=== PATIENT | female | born 1990 | race Caucasian/White ===

== ENCOUNTER 2016-08-25 10:05 | Inpatient (IN) ==
[~2016-08-25 10:05] MED LIST: Famotidine 20 MG/2 ML VIAL IVP PRN; Naloxone 0.4 MG/ML INJ IVP PRN; Ondansetron 4 MG/2 ML VIAL IVP PRN
[2016-08-25] MEDS ORDERED: *HR* Nalbuphine 20 MG/ML AMPUL IVP PRN (10:09)
--- NOTE | 2016-08-25 10:40 | OB/GYN History & Physical ---
Date of Encounter: 08/25/16 Time of Encounter: 10:29 Assessment and Plan (1) 17 weeks gestation of Current visit: Yes Status: Acute Admit for expectant management of nonviable 17w fetus Patient may have nubain as needed for pain CBC sent to lab Saline lock inserted Intermittent monitoring of heart tones (current 140); IOL with PV cytotec when heart tones have stopped Vaginal delivery anticipated Patient declines autopsy at this time She has yet to decide what she would like done with remains. POC per consult with Dr Roman (2) SROM (spontaneous rupture of membranes) Current visit: Yes Status: Acute Admit for expectant management of nonviable 17 week fetus History of Present Illness Chief complaint: PPROM at 17w5d HPI: Ms. Sofia is a 25 year old female that arrives from the office with c/o SROM at 17w5d and heart tones of 57 per ultrasound in office. Fetus is footling breech. She has a positive family history of jessica's disease. FOB has a positive family history of TOF. She is Rubella immune, varicella immune, RPR negative, HIV negative, Hep B negative, and her blood type is A positive. She denies pain, cramping, and vaginal bleeding. Ultrasound report from today: Scan: Transabdominal. Indication: viability. Findings: TA exam---mayberry--- breech fetus--+FHR at 57 bpm---no amniotic fluid seen surrounding baby---- appears to be a foot and leg in the cervix and vagina----dario in room for scan---[facility]. Past Med Surg Social Fam HX - Past Medical History Medical history: no medical history Psychiatric history: anxiety, depression - Past Surgical History Surgical History: non-contributory - Social History Smoking Status: Never smoker Smokeless Tobacco Status: Yes (ecig) Alcohol use: none Drug use: none Obstetrical History - Pregnancies : 1 Para: 0 Term: 0 : 0 Ab's: 0 Livin Medications and Allergies Benzonatate [Tessalon] 200 mg PO Q8H #20 capsule 01/03/16 [Rx] Loratadine/Pseudophed (12 HR) [Claritin D (12HR)] 1 each PO BID #14 tab.er.12h 01/03/16 [Rx] Ondansetron ODT [Zofran ODT] 4 mg SL Q6HR #15 tab.rapdis 05/21/16 [Rx] Vit/Iron Fumarate/FA [ Tablet] 1 each PO QDPC #90 tablet [Rx] Sulfamethoxazole/Trimeth DS [Bactrim DS] 1 each PO BID #14 tablet 06/05/16 [Rx] Allergies No Known Allergies Allergy (Verified 05/27/16 19:21) Exam - Constitutional Constitutional: well developed, well nourished, no acute distress, average body habitus - HEENT HEENT: Normocephaly, Mucus Membranes Moist - Lungs Respiratory exam: CTAB - Cardiovascular Cardiovascular exam: RRR, +S1, +S2 - Abdomen Abdomen: Present: bowel sounds normal, gravid, non tender - Extremities Extremities exam: normal capillary refill, normal inspection, warm, radial pulses palpable and symetrical - Uterus Uterus exam: Present: normal size (Appropriate for gestational age. Per doppler heart tones are 140; uterus palpates soft) Results All other labs normal. - VTE Reasons for not Prescribing Prophylaxis: Treatment not Indicated - Low risk for VTE
[2016-08-25 10:51] LABS: Basophils % 0.1 %; Eosinophils # 0.1 K/mcL (0.0-0.6); Eosinophils % 0.5 %; Hematocrit 36.6 % (35.3-44.9); Hemoglobin 12.5 g/dL (11.5-15.4); Immature Granulocytes % 0.5 % (0-4); Lymphocytes # 2.2 K/mcL (0.6-4.6); Lymphocytes % 15.2 %; Mean Corpuscular HGB Conc 34.2 g/dL (31.6-35.5); Mean Corpuscular Volume 84.9 fL (83.0-100.0); Mean Platelet Volume 11.8 fL (9.4-12.4); Monocytes # 0.9 K/mcL (0.0-1.3); Monocytes % 6.2 %; Neutrophils # 11.3 K/mcL (1.6-8.9); Platelet Count 206 K/mcL (140-400); Red Blood Count 4.31 M/mcL (3.82-4.97); Segmented Neutrophils % 77.5 %
== END 2016-08-25 16:40 | disposition critical access hospital (66) | DRG 566 ==
LOC: 1NENULAB
PROVIDERS: ADMIT Student in an Organized Health Care Education/Training Program; ATTEND Student in an Organized Health Care Education/Training Program

== ENCOUNTER 2019-02-16 19:02 | Inpatient (IN) ==
[2019-02-16] MEDS ORDERED: Isovue-370 500 ML BOTTLE IVP ONE (19:33)
[2019-02-16 19:45] LABS: Basophils % 0.3 %; Eosinophils # 0.1 K/mcL (0.0-0.6); Eosinophils % 0.4 %; Hematocrit 40.8 % (35.3-44.9); Hemoglobin 13.3 g/dL (11.5-15.4); Immature Granulocytes % 0.3 % (0-4); Lymphocytes # 2.7 K/mcL (0.6-4.6); Lymphocytes % 22.8 %; Mean Corpuscular HGB Conc 32.6 g/dL (31.6-35.5); Mean Corpuscular Hemoglobin 27.3 pg (28.0-33.3); Mean Corpuscular Volume 83.6 fL (83.0-100.0); Mean Platelet Volume 11.5 fL (9.4-12.4); Monocytes # 1.1 K/mcL (0.0-1.3); Platelet Count 303 K/mcL (140-400); Red Blood Count 4.88 M/mcL (3.82-4.97); Red Cell Distribution Width 13.7 % (11.5-14.5); Segmented Neutrophils % 67.2 %; White Blood Count 11.9 K/mcL (4.3-11.1)
[2019-02-16 20:07] LABS: Alanine Aminotransferase 14 Units/L (7-52); Albumin 4.4 g/dL (3.5-5.7); Albumin/Globulin Ratio 1.3 (1.1-2.2); Alkaline Phosphatase 85 Units/L (34-104); Amylase 54 Units/L (29-103); Aspartate Amino Transferase 13 Units/L (13-39); BUN/Creatinine Ratio 13 (6-26); Bilirubin,Indirect 0.2 mg/dL (0.0-1.0); Bilirubin,Total 0.2 mg/dL (0.3-1.0); Blood Urea Nitrogen 9 mg/dL (6-20); Calcium 9.4 mg/dL (8.6-10.3); Carbon Dioxide 22 mEq/L (23-29); Chloride 104 mEq/L (98-107); Globulin 3.3 g/dL (2.4-3.5); Glucose 93 mg/dL (70-105); Lipase 58 Units/L (11-82); Osmolality,Calculated 280 (280-300); Potassium 3.5 mEq/L (3.5-5.1); Sodium 136 mEq/L (136-145); Total Protein 7.7 g/dL (6.4-8.9); eGFR For African Americans > 60 (> 60); eGFR For Non-African Americans > 60 (> 60)
[2019-02-16 20:17] LABS: Bilirubin,Urine Negative (Negative); Blood,Urine Negative (Negative); Clarity,Urine Clear (Clear); Color,Urine Yellow (Yellow); Glucose,Urine (UA) Normal (Normal); Ketones,Urine Negative (Negative); Leukocyte Esterase,Urine Trace (Negative); Nitrite,Urine Negative (Negative); Protein,Urine Negative (Neg-Trace); Specific Gravity,Urine 1.019 (1.010-1.025); Urobilinogen,Urine Normal (Normal)
[2019-02-16 20:20] LABS: Bacteria,Urine None Seen per hpf (None-Few); Hyaline Casts,Urine None Seen per lpf (None-Few); RBC,Urine 0-3 per hpf (0-3); Squamous Epithelial Cell,Urine Many per lpf (None-Few)
[2019-02-16] MEDS ORDERED: Morphine Sulfate 2 MG/ML SYRINGE IVP ONE (23:15)
[2019-02-17] MEDS ORDERED: *HR* Meperidine 25 MG/ML SYRINGE IVP PRN (02:00)
[2019-02-17] MEDS ORDERED: Ondansetron 4 MG/2 ML VIAL IVP ONE (02:00)
[2019-02-17] MEDS ORDERED: *HR* Promethazine 25 MG/ML VIAL IVP PRN (02:00)
[2019-02-17] MEDS ORDERED: *HR* FentaNYL (PF) 100 MCG/2 ML VIAL ONE (02:04)
[2019-02-17] MEDS ORDERED: *HR* Propofol 200 MG/20 ML VIAL IVP ONE (02:04)
[2019-02-17] MEDS ORDERED: Lidocaine -MPF 4% 5 ML AMPUL ONE (02:04)
[2019-02-17] MEDS ORDERED: Lidocaine -MPF 2% 2 ML VIAL ONE (02:04)
[2019-02-17] MEDS ORDERED: *HR* Rocuronium Bromide 50 MG/5 ML VIAL ONE (02:04)
[2019-02-17] MEDS ORDERED: Ondansetron 4 MG/2 ML VIAL ONE (02:05)
[2019-02-17] MEDS ORDERED: Dexamethasone 4 MG/ML VIAL ONE (02:05)
[2019-02-17] MEDS ORDERED: Bupivacaine-MPF 0.25% 10 ML VIAL ONE (02:24)
[2019-02-17] MEDS ORDERED: Acetaminophen IV 1,000 MG/100 ML INFUS..BTL ONE (02:36)
[2019-02-17] MEDS ORDERED: *HR* Midazolam HCl 2 MG/2 ML VIAL ONE (02:37)
[2019-02-17] MEDS ORDERED: Lacri-Lube 3.5 GM TUBE ONE (03:14)
[2019-02-17] MEDS ORDERED: Neostigmine Methylsulfate 3 MG/3 ML SYRINGE ONE (05:05)
[2019-02-17] MEDS: *HR* HYDROmorphone (PF) 1 MG/ML SYRINGE IVP PRN ×3 (05:44→06:56)
[2019-02-17] MEDS ORDERED: Ringers Solution, Lactated 1,000 ML IVC SCH (06:13)
[2019-02-17] MEDS ORDERED: *HR* HYDROcodone/Acet 5/325 mg TABLET PO PRN (06:13)
[2019-02-17] MEDS ORDERED: *HR* OxyCODONE/APAP 5/325 TABLET PO PRN (06:13)
[2019-02-17] MEDS ORDERED: Naloxone 0.4 MG/ML INJ IVP PRN ×2 (06:13→06:44)
[2019-02-17] MEDS ORDERED: Chloraseptic Spray 177 ML BOTTLE MM PRN (06:44)
[2019-02-17] MEDS: Ringers Solution, Lactated 1,000 ML IVC SCH ×2 (07:44→15:40)
[2019-02-17] MEDS: *HR* HYDROcodone/Acet 5/325 mg TABLET PO PRN ×2 (10:51→15:39)
[2019-02-17] MEDS: Ondansetron 4 MG/2 ML VIAL IVP PRN (13:28)
[2019-02-17] MEDS: *HR* OxyCODONE/APAP 5/325 TABLET PO PRN ×2 (18:02→22:04)
[2019-02-18] MEDS: *HR* OxyCODONE/APAP 5/325 TABLET PO PRN ×5 (03:02→23:19)
[2019-02-18] MEDS: *HR* HYDROcodone/Acet 5/325 mg TABLET PO PRN (08:14)
[2019-02-18] MEDS: *HR* HYDROmorphone (PF) 1 MG/ML SYRINGE IVP PRN (14:19)
[2019-02-18] MEDS: Ondansetron 4 MG/2 ML VIAL IVP PRN (19:24)
[2019-02-18] MEDS: Ibuprofen 600 MG TABLET PO SCH (21:36)
[2019-02-19] MEDS: *HR* HYDROcodone/Acet 5/325 mg TABLET PO PRN (04:16)
[2019-02-19] MEDS: Ibuprofen 600 MG TABLET PO SCH (08:00)
[2019-02-19] MEDS: *HR* OxyCODONE/APAP 5/325 TABLET PO PRN (08:00)
[2019-02-19 09:39] VITALS: BP 105/67
== END 2019-02-19 11:00 | disposition home or self-care (01) | DRG 513 ==
LOC: EMEROOARM 19:02 → 1NENUOBS 19:02 → EMEROOARM 02-17 02:58 → 1NENUOBS 02-17 06:21
PROVIDERS: ADMIT Obstetrics & Gynecology; ATTEND Obstetrics & Gynecology

== ENCOUNTER 2019-02-26 19:07 | Inpatient (IN) ==
[2019-02-26] MEDS ORDERED: Naloxone 0.4 MG/ML INJ IVP PRN (21:27)
[2019-02-26] MEDS: 0.9 % Sodium Chloride 1,000 ML IVC SCH (22:55)
[2019-02-26 23:18] LABS: Bilirubin,Urine Negative (Negative); Blood,Urine Negative (Negative); Clarity,Urine Clear (Clear); Color,Urine Yellow (Yellow); Glucose,Urine (UA) Normal (Normal); Ketones,Urine Negative (Negative); Leukocyte Esterase,Urine Negative (Negative); Nitrite,Urine Negative (Negative); Protein,Urine Negative (Neg-Trace); Specific Gravity,Urine > 1.030 (1.010-1.025); Urobilinogen,Urine Normal (Normal)
[2019-02-27 07:51] LABS: Basophils % 0.2 %; Eosinophils % 0.1 %; Hematocrit 35.4 % (35.3-44.9); Hemoglobin 11.1 g/dL (11.5-15.4); Immature Granulocytes % 0.4 % (0-4); Lymphocytes # 2.3 K/mcL (0.6-4.6); Lymphocytes % 17.1 %; Mean Corpuscular HGB Conc 31.4 g/dL (31.6-35.5); Mean Corpuscular Hemoglobin 26.6 pg (28.0-33.3); Mean Corpuscular Volume 84.9 fL (83.0-100.0); Monocytes % 7.1 %; Neutrophils # 10.1 K/mcL (1.6-8.9); Platelet Count 368 K/mcL (140-400); Red Blood Count 4.17 M/mcL (3.82-4.97); Red Cell Distribution Width 13.9 % (11.5-14.5); Segmented Neutrophils % 75.1 %; White Blood Count 13.4 K/mcL (4.3-11.1)
[2019-02-27 07:55] LABS: INR 1.2; Prothrombin Time 14.1 Seconds (9.4-12.1)
[2019-02-27 08:15] LABS: Alanine Aminotransferase 12 Units/L (7-52); Albumin 3.6 g/dL (3.5-5.7); Albumin/Globulin Ratio 1.2 (1.1-2.2); Alkaline Phosphatase 76 Units/L (34-104); Aspartate Amino Transferase 14 Units/L (13-39); BUN/Creatinine Ratio 11 (6-26); Bilirubin,Total 0.2 mg/dL (0.3-1.0); Blood Urea Nitrogen 7 mg/dL (6-20); Calcium 8.7 mg/dL (8.6-10.3); Carbon Dioxide 23 mEq/L (23-29); Chloride 106 mEq/L (98-107); Chol/HDL Ratio 4.8 (0-4.9); Cholesterol 157 mg/dL (< 200); Glucose 82 mg/dL (70-105); HDL Cholesterol 33 mg/dL (40-59); LDL Cholesterol,Calculated 109 mg/dL (0-99); Magnesium 1.8 mg/dL (1.6-2.6); Osmolality,Calculated 291 (280-300); Phosphorous 2.9 mg/dL (2.7-4.5); Potassium 3.4 mEq/L (3.5-5.1); Sodium 142 mEq/L (136-145); Total Protein 6.6 g/dL (6.4-8.9); Triglycerides 77 mg/dL (< 150); eGFR For African Americans > 60 (> 60); eGFR For Non-African Americans > 60 (> 60)
[2019-02-27] MEDS ORDERED: *HR* FentaNYL (PF) 100 MCG/2 ML VIAL IVP PRN (09:01)
[2019-02-27] MEDS: 0.9 % Sodium Chloride 1,000 ML IVC SCH (14:21)
[2019-02-27] MEDS: *HR* Heparin 5,000 UNIT/ML VIAL SQ SCH (17:20)
[2019-02-27] MEDS ORDERED: Dextrose Gel 15 GM/37.5 ML TUBE PO PRN ×2 (19:56)
[2019-02-27] MEDS ORDERED: D5% in Water 1,000 ML IVC PRN (19:56)
[2019-02-27] MEDS: *HR* Dextrose 50 % in Water (Syg) 50 ML SYRINGE IVP PRN ×2 (20:27→22:26)
[2019-02-27] MEDS ORDERED: 0.9 % Sodium Chloride 1,000 ML IVC SCH (21:00)
[2019-02-28] MEDS ORDERED: D5% in 0.45% NACL 1,000 ML IVC SCH (00:45)
[2019-02-28 03:59] LABS: Basophils % 0.1 %; Eosinophils # 0.3 K/mcL (0.0-0.6); Eosinophils % 2.5 %; Hematocrit 33.5 % (35.3-44.9); Hemoglobin 10.6 g/dL (11.5-15.4); Immature Granulocytes % 0.3 % (0-4); Lymphocytes # 2.8 K/mcL (0.6-4.6); Lymphocytes % 25.6 %; Mean Corpuscular HGB Conc 31.6 g/dL (31.6-35.5); Mean Corpuscular Volume 85.5 fL (83.0-100.0); Mean Platelet Volume 10.3 fL (9.4-12.4); Monocytes # 0.9 K/mcL (0.0-1.3); Monocytes % 7.8 %; Platelet Count 302 K/mcL (140-400); Red Blood Count 3.92 M/mcL (3.82-4.97); Red Cell Distribution Width 13.7 % (11.5-14.5); Segmented Neutrophils % 63.7 %
[2019-02-28 04:21] LABS: BUN/Creatinine Ratio 13 (6-26); Blood Urea Nitrogen 8 mg/dL (6-20); Calcium 8.3 mg/dL (8.6-10.3); Carbon Dioxide 25 mEq/L (23-29); Chloride 106 mEq/L (98-107); Glucose 94 mg/dL (70-105); Magnesium 1.9 mg/dL (1.6-2.6); Osmolality,Calculated 290 (280-300); Phosphorous 2.2 mg/dL (2.7-4.5); Potassium 3.3 mEq/L (3.5-5.1); Sodium 141 mEq/L (136-145); eGFR For African Americans > 60 (> 60); eGFR For Non-African Americans > 60 (> 60)
[2019-02-28] MEDS ORDERED: D10% in Water 500 ML IVC SCH (04:30)
[2019-02-28] MEDS ORDERED: Acetaminophen IV 1,000 MG/100 ML INFUS..BTL IVPB ONE (04:52)
[2019-02-28] MEDS: *HR* Heparin 5,000 UNIT/ML VIAL SQ SCH ×2 (05:14→17:29)
[2019-02-28 08:06] LABS: Estimated Average Glucose 103 mg/dl
[2019-02-28] MEDS: Ondansetron 4 MG/2 ML VIAL IVP PRN ×2 (09:54→19:00)
[2019-02-28] MEDS ORDERED: *HR* Promethazine 25 MG/ML VIAL IVP ONE ×2 (11:38→20:29)
[2019-02-28] MEDS ORDERED: Ondansetron 4 MG/2 ML VIAL IVP ONE (14:39)
[2019-02-28] MEDS ORDERED: Haloperidol Lactate 5 MG/ML VIAL IM ONE (14:39)
[2019-02-28] MEDS ORDERED: Ringers Solution, Lactated 1,000 ML IVC SCH (15:00)
[2019-02-28] MEDS: Ringers Solution, Lactated 1,000 ML IVC SCH (21:46)
[2019-03-01] MEDS ORDERED: Scopolamine Patch 1.5 MG PATCH.TD72 TD ONE (01:16)
[2019-03-01] MEDS ORDERED: Haloperidol Lactate 5 MG/ML VIAL IVP ONE (01:16)
[2019-03-01 04:49] LABS: Basophils % 0.1 %; Hematocrit 36.3 % (35.3-44.9); Hemoglobin 11.4 g/dL (11.5-15.4); Immature Granulocytes % 0.4 % (0-4); Lymphocytes # 1.7 K/mcL (0.6-4.6); Lymphocytes % 10.4 %; Mean Corpuscular HGB Conc 31.4 g/dL (31.6-35.5); Mean Corpuscular Hemoglobin 27.5 pg (28.0-33.3); Mean Corpuscular Volume 87.7 fL (83.0-100.0); Mean Platelet Volume 10.7 fL (9.4-12.4); Monocytes % 6.5 %; Neutrophils # 13.2 K/mcL (1.6-8.9); Platelet Count 347 K/mcL (140-400); Red Blood Count 4.14 M/mcL (3.82-4.97); Red Cell Distribution Width 13.4 % (11.5-14.5); Segmented Neutrophils % 82.6 %
[2019-03-01 05:05] LABS: BUN/Creatinine Ratio 12 (6-26); Blood Urea Nitrogen 7 mg/dL (6-20); Calcium 9.1 mg/dL (8.6-10.3); Carbon Dioxide 22 mEq/L (23-29); Chloride 107 mEq/L (98-107); Glucose 86 mg/dL (70-105); Magnesium 1.9 mg/dL (1.6-2.6); Osmolality,Calculated 285 (280-300); Phosphorous 2.8 mg/dL (2.7-4.5); Potassium 3.6 mEq/L (3.5-5.1); Sodium 139 mEq/L (136-145); eGFR For African Americans > 60 (> 60); eGFR For Non-African Americans > 60 (> 60)
[2019-03-01] MEDS: *HR* Heparin 5,000 UNIT/ML VIAL SQ SCH ×2 (06:04→18:51)
[2019-03-01] MEDS: Ringers Solution, Lactated 1,000 ML IVC SCH (12:50)
[2019-03-02] MEDS: *HR* Heparin 5,000 UNIT/ML VIAL SQ SCH (06:10)
[2019-03-02 07:08] VITALS: BP 111/72
[2019-03-02 09:58] LABS: Basophils % 0.2 %; Eosinophils # 0.1 K/mcL (0.0-0.6); Eosinophils % 1.1 %; Hematocrit 37.7 % (35.3-44.9); Hemoglobin 11.8 g/dL (11.5-15.4); Immature Granulocytes % 0.3 % (0-4); Lymphocytes # 2.4 K/mcL (0.6-4.6); Lymphocytes % 19.1 %; Mean Corpuscular HGB Conc 31.3 g/dL (31.6-35.5); Mean Corpuscular Hemoglobin 27.1 pg (28.0-33.3); Mean Corpuscular Volume 86.7 fL (83.0-100.0); Mean Platelet Volume 10.9 fL (9.4-12.4); Monocytes # 0.9 K/mcL (0.0-1.3); Monocytes % 6.9 %; Platelet Count 314 K/mcL (140-400); Red Blood Count 4.35 M/mcL (3.82-4.97); Red Cell Distribution Width 13.6 % (11.5-14.5); Segmented Neutrophils % 72.4 %; White Blood Count 12.4 K/mcL (4.3-11.1)
[2019-03-02 10:17] LABS: BUN/Creatinine Ratio 17 (6-26); Blood Urea Nitrogen 10 mg/dL (6-20); Calcium 9.2 mg/dL (8.6-10.3); Carbon Dioxide 23 mEq/L (23-29); Chloride 102 mEq/L (98-107); Glucose 90 mg/dL (70-105); Osmolality,Calculated 285 (280-300); Potassium 3.4 mEq/L (3.5-5.1); Sodium 138 mEq/L (136-145); eGFR For African Americans > 60 (> 60); eGFR For Non-African Americans > 60 (> 60)
== END 2019-03-02 14:45 | disposition home or self-care (01) | DRG 247 ==
LOC: 3ANU → SUATTDRO 20:20
PROVIDERS: ADMIT Internal Medicine; ATTEND Internal Medicine

== ENCOUNTER 2019-03-02 20:56 | Inpatient (IN) ==
[2019-03-03] MEDS ORDERED: Naloxone 0.4 MG/ML INJ IVP PRN (02:09)
[2019-03-03] MEDS ORDERED: Ondansetron ODT 4 MG TAB.RAPDIS SL PRN ×2 (02:09→02:18)
[2019-03-03] MEDS ORDERED: Ringers Solution, Lactated 1,000 ML IVC SCH (02:15)
[2019-03-03] MEDS ORDERED: *HR* Promethazine 25 MG/ML VIAL IVP ONE (02:21)
[2019-03-03 03:15] LABS: Bilirubin,Urine Negative (Negative); Blood,Urine Trace (Negative); Clarity,Urine Clear (Clear); Color,Urine Yellow (Yellow); Glucose,Urine (UA) Normal (Normal); Ketones,Urine >=160 mg/dL (Negative); Leukocyte Esterase,Urine Negative (Negative); Nitrite,Urine Negative (Negative); Protein,Urine Negative (Neg-Trace); Specific Gravity,Urine 1.024 (1.010-1.025); Urobilinogen,Urine Normal (Normal)
[2019-03-03 03:17] LABS: Bacteria,Urine None Seen per hpf (None-Few); Hyaline Casts,Urine None Seen per lpf (None-Few); RBC,Urine 0-3 per hpf (0-3); Squamous Epithelial Cell,Urine Many per lpf (None-Few)
[2019-03-03 03:22] LABS: Amphetamine Screen,Urine Negative ng/mL (Cutoff=1000); Barbiturate Screen,Urine Negative ng/mL (Cutoff=200); Benzodiazepines Screen,Urine Negative ng/mL (Cutoff=200); Cannabinoid Screen,Urine Positive ng/mL (Cutoff = 50); Cocaine Screen,Urine Negative ng/mL (Cutoff= 300); Opiate Screen,Urine Negative ng/mL (Cutoff=300); Phencyclidine Screen,Urine Negative ng/mL (Cutoff=25)
[2019-03-03 03:26] LABS: Basophils % 0.1 %; Eosinophils % 0.1 %; Hematocrit 36.8 % (35.3-44.9); Hemoglobin 11.9 g/dL (11.5-15.4); Immature Granulocytes % 0.6 % (0-4); Lymphocytes # 1.1 K/mcL (0.6-4.6); Lymphocytes % 5.9 %; Mean Corpuscular HGB Conc 32.3 g/dL (31.6-35.5); Mean Corpuscular Hemoglobin 26.9 pg (28.0-33.3); Mean Corpuscular Volume 83.1 fL (83.0-100.0); Mean Platelet Volume 10.5 fL (9.4-12.4); Monocytes # 0.6 K/mcL (0.0-1.3); Monocytes % 3.2 %; Neutrophils # 17.4 K/mcL (1.6-8.9); Platelet Count 394 K/mcL (140-400); Red Blood Count 4.43 M/mcL (3.82-4.97); Red Cell Distribution Width 13.5 % (11.5-14.5); Segmented Neutrophils % 90.1 %
[2019-03-03 03:27] LABS: INR 1.4; Prothrombin Time 15.9 Seconds (9.4-12.1)
[2019-03-03 03:28] LABS: White Blood Count 19.3 K/mcL (4.3-11.1)
[2019-03-03 03:43] LABS: C-Reactive Protein 26 mg/L (Less than 10); Creatine Kinase 44 Units/L (30-223)
[2019-03-03 03:45] LABS: Alanine Aminotransferase 83 Units/L (7-52); Albumin 4.2 g/dL (3.5-5.7); Albumin/Globulin Ratio 1.2 (1.1-2.2); Alkaline Phosphatase 96 Units/L (34-104); Aspartate Amino Transferase 43 Units/L (13-39); BUN/Creatinine Ratio 11 (6-26); Bilirubin,Total 0.5 mg/dL (0.3-1.0); Blood Urea Nitrogen 7 mg/dL (6-20); Calcium 9.1 mg/dL (8.6-10.3); Carbon Dioxide 22 mEq/L (23-29); Chloride 102 mEq/L (98-107); Chol/HDL Ratio 3.9 (0-4.9); Cholesterol 143 mg/dL (< 200); Globulin 3.4 g/dL (2.4-3.5); Glucose 100 mg/dL (70-105); HDL Cholesterol 37 mg/dL (40-59); LDL Cholesterol,Calculated 91 mg/dL (0-99); Magnesium 1.8 mg/dL (1.6-2.6); Osmolality,Calculated 280 (280-300); Phosphorous 3.5 mg/dL (2.7-4.5); Sodium 136 mEq/L (136-145); Total Protein 7.6 g/dL (6.4-8.9); Triglycerides 77 mg/dL (< 150); eGFR For African Americans > 60 (> 60); eGFR For Non-African Americans > 60 (> 60)
[2019-03-03 03:57] LABS: Thyroid Stimulating Hormone 1.136 mcIU/mL (0.340-5.600)
[2019-03-03] MEDS: *HR* Heparin 5,000 UNIT/ML VIAL SQ SCH ×2 (06:12→17:40)
[2019-03-03] MEDS ORDERED: Ringers Solution, Lactated 1,000 ML IVC ONE (06:14)
[2019-03-03 07:17] LABS: Albumin 3.8 g/dL (3.5-5.7); Albumin/Globulin Ratio 1.2 (1.1-2.2); Bilirubin,Direct 0.1 mg/dL (0.0-0.2); Bilirubin,Indirect 0.4 mg/dL (0.0-1.0); Bilirubin,Total 0.5 mg/dL (0.3-1.0); Globulin 3.1 g/dL (2.4-3.5); Total Protein 6.9 g/dL (6.4-8.9)
[2019-03-03] MEDS: Haloperidol Lactate 5 MG/ML VIAL IVP PRN ×2 (11:50→16:17)
[2019-03-03] MEDS: Ringers Solution, Lactated 1,000 ML IVC SCH ×2 (11:58→17:41)
[2019-03-03] MEDS: *HR* Promethazine 25 MG/ML VIAL IVP PRN (19:50)
[2019-03-04] MEDS: Haloperidol Lactate 5 MG/ML VIAL IVP PRN (01:25)
[2019-03-04] MEDS: Ringers Solution, Lactated 1,000 ML IVC SCH ×2 (03:45→16:38)
[2019-03-04] MEDS: *HR* Promethazine 25 MG/ML VIAL IVP PRN (04:58)
[2019-03-04] MEDS: *HR* Heparin 5,000 UNIT/ML VIAL SQ SCH ×2 (06:45→18:15)
[2019-03-04 06:59] LABS: Basophils % 0.2 %; Eosinophils % 0.1 %; Hematocrit 34.9 % (35.3-44.9); Hemoglobin 11.4 g/dL (11.5-15.4); Immature Granulocytes % 0.4 % (0-4); Lymphocytes # 1.7 K/mcL (0.6-4.6); Lymphocytes % 12.9 %; Mean Corpuscular HGB Conc 32.7 g/dL (31.6-35.5); Mean Corpuscular Hemoglobin 26.9 pg (28.0-33.3); Mean Corpuscular Volume 82.3 fL (83.0-100.0); Mean Platelet Volume 10.7 fL (9.4-12.4); Monocytes # 1.1 K/mcL (0.0-1.3); Monocytes % 8.1 %; Neutrophils # 10.5 K/mcL (1.6-8.9); Nucleated Red Blood Cells 0.1 /100 WBC (0); Platelet Count 346 K/mcL (140-400); Red Blood Count 4.24 M/mcL (3.82-4.97); Red Cell Distribution Width 13.7 % (11.5-14.5); Segmented Neutrophils % 78.3 %; White Blood Count 13.4 K/mcL (4.3-11.1)
[2019-03-04 07:07] LABS: INR 1.4; Prothrombin Time 16.4 Seconds (9.4-12.1)
[2019-03-04 07:18] LABS: Alanine Aminotransferase 54 Units/L (7-52); Albumin 3.8 g/dL (3.5-5.7); Albumin/Globulin Ratio 1.3 (1.1-2.2); Alkaline Phosphatase 83 Units/L (34-104); Aspartate Amino Transferase 22 Units/L (13-39); BUN/Creatinine Ratio 11 (6-26); Bilirubin,Direct 0.2 mg/dL (0.0-0.2); Bilirubin,Indirect 0.2 mg/dL (0.0-1.0); Bilirubin,Total 0.4 mg/dL (0.3-1.0); Blood Urea Nitrogen 6 mg/dL (6-20); Calcium 8.8 mg/dL (8.6-10.3); Carbon Dioxide 22 mEq/L (23-29); Chloride 101 mEq/L (98-107); Glucose 74 mg/dL (70-105); Magnesium 1.7 mg/dL (1.6-2.6); Osmolality,Calculated 280 (280-300); Phosphorous 2.6 mg/dL (2.7-4.5); Potassium 3.8 mEq/L (3.5-5.1); Sodium 137 mEq/L (136-145); Total Protein 6.8 g/dL (6.4-8.9); eGFR For African Americans > 60 (> 60); eGFR For Non-African Americans > 60 (> 60)
[2019-03-04] MEDS ORDERED: Methylnaltrexone 12 MG/0.6 ML SYRINGE SQ ONE (07:19)
[2019-03-04 07:24] LABS: VBG HCO3 24 mEq/L (21-27); VBG PCO2 40 mmHg (41-51); VBG PH 7.39 pH Units (7.32-7.42); VBG PO2 135 mmHg (25-50)
[2019-03-04] MEDS ORDERED: Lidocaine -MPF 1% 5 ML AMPUL INFILT ONE (08:26)
[2019-03-04] MEDS ORDERED: D10% in Water 500 ML IVC PRN (11:46)
[2019-03-04] MEDS: Ondansetron 4 MG/2 ML VIAL IVP SCH ×3 (12:36→18:16)
[2019-03-04] MEDS ORDERED: Clinimix E 5%-15% SOLUTION 2,000 ML with MVI, adult with vitamin K 10 ML IVC SCH (17:00)
[2019-03-04] MEDS ORDERED: Dexamethasone 4 MG/ML VIAL ONE (18:48)
[2019-03-04] MEDS ORDERED: Ondansetron 4 MG/2 ML VIAL ONE (18:48)
[2019-03-04] MEDS ORDERED: Neostigmine Methylsulfate 3 MG/3 ML SYRINGE ONE (18:48)
[2019-03-04] MEDS ORDERED: *HR* Rocuronium Bromide 50 MG/5 ML VIAL ONE (18:48)
[2019-03-04] MEDS ORDERED: *HR* FentaNYL (PF) 100 MCG/2 ML VIAL ONE (18:48)
[2019-03-04] MEDS ORDERED: *HR* Propofol 200 MG/20 ML VIAL IVP ONE ×2 (18:48→18:50)
[2019-03-04] MEDS ORDERED: *HR* Succinylcholine 200 MG/10 ML VIAL IVP ONE (18:48)
[2019-03-04] MEDS ORDERED: *HR* Midazolam HCl 2 MG/2 ML VIAL ONE (18:48)
[2019-03-04] MEDS ORDERED: Lidocaine -MPF 2% 2 ML VIAL ONE (18:48)
[2019-03-04] MEDS ORDERED: Lidocaine HCL 4 ML Topical Solution (Laryng-O-Jet Kit Sterile Pak) TP ONE (18:58)
[2019-03-04] MEDS ORDERED: *HR* Promethazine 25 MG/ML VIAL IVP PRN (21:26)
[2019-03-04] MEDS ORDERED: Ondansetron 4 MG/2 ML VIAL IVP PRN (21:26)
[2019-03-04] MEDS ORDERED: *HR* OxyCODONE Immed Rel 5 MG TABLET PO PRN (21:26)
[2019-03-04] MEDS ORDERED: *HR* Labetalol 20 MG/4 ML SYRINGE IVP PRN (21:26)
[2019-03-04] MEDS ORDERED: *HR* HYDROmorphone (PF) 1 MG/ML SYRINGE IVP PRN (21:26)
[2019-03-04] MEDS ORDERED: Acetaminophen IV 1,000 MG/100 ML INFUS..BTL ONE (21:31)
[2019-03-04] MEDS ORDERED: *HR* HYDROMORPHONE 2 MG/ML VIAL ONE (22:38)
[2019-03-05] MEDS ORDERED: Naloxone 0.4 MG/ML INJ IVP PRN (00:07)
[2019-03-05] MEDS ORDERED: *HR* OxyCODONE/APAP 5/325 TABLET PO PRN (00:07)
[2019-03-05] MEDS ORDERED: Haloperidol Lactate 5 MG/ML VIAL IVP PRN (00:07)
[2019-03-05] MEDS: Metoclopramide 10 MG/2 ML VIAL IVP SCH ×4 (00:23→18:57)
[2019-03-05] MEDS: Ringers Solution, Lactated 1,000 ML IVC SCH ×3 (00:23→12:47)
[2019-03-05] MEDS: Ketorolac 15 MG/ML VIAL IVP SCH ×4 (00:23→18:58)
[2019-03-05 04:56] LABS: Hematocrit 36.1 % (35.3-44.9); Hemoglobin 11.6 g/dL (11.5-15.4); Mean Corpuscular HGB Conc 32.1 g/dL (31.6-35.5); Mean Corpuscular Hemoglobin 27.8 pg (28.0-33.3); Mean Corpuscular Volume 86.6 fL (83.0-100.0); Mean Platelet Volume 10.4 fL (9.4-12.4); Platelet Count 309 K/mcL (140-400); Red Blood Count 4.17 M/mcL (3.82-4.97); Red Cell Distribution Width 13.5 % (11.5-14.5); White Blood Count 17.6 K/mcL (4.3-11.1)
[2019-03-05] MEDS: *HR* Heparin 5,000 UNIT/ML VIAL SQ SCH ×2 (05:05→18:58)
[2019-03-05] MEDS: Pantoprazole 40 MG VIAL IVP SCH ×2 (05:05→18:58)
[2019-03-05] MEDS: Ondansetron 4 MG/2 ML VIAL IVP SCH ×4 (05:05→18:57)
[2019-03-05 05:16] LABS: Albumin/Globulin Ratio 1.3 (1.1-2.2); BUN/Creatinine Ratio 14 (6-26); Bilirubin,Direct 0.1 mg/dL (0.0-0.2); Bilirubin,Indirect 0.4 mg/dL (0.0-1.0); Bilirubin,Total 0.5 mg/dL (0.3-1.0); Blood Urea Nitrogen 8 mg/dL (6-20); Calcium 8.6 mg/dL (8.6-10.3); Carbon Dioxide 20 mEq/L (23-29); Chloride 101 mEq/L (98-107); Globulin 3.1 g/dL (2.4-3.5); Glucose 90 mg/dL (70-105); Magnesium 1.7 mg/dL (1.6-2.6); Osmolality,Calculated 274 (280-300); Phosphorous 3.7 mg/dL (2.7-4.5); Potassium 4.1 mEq/L (3.5-5.1); Sodium 133 mEq/L (136-145); Total Protein 7.1 g/dL (6.4-8.9); eGFR For African Americans > 60 (> 60); eGFR For Non-African Americans > 60 (> 60)
[2019-03-05] MEDS: Bisacodyl 10 MG RECTAL SUPPOSITORY RC SCH (11:08)
[2019-03-05] MEDS: Sennosides 8.6 MG TABLET PO SCH (20:40)
[2019-03-06] MEDS: Ondansetron 4 MG/2 ML VIAL IVP SCH ×2 (00:12→06:29)
[2019-03-06] MEDS: Ketorolac 15 MG/ML VIAL IVP SCH ×2 (00:12→06:33)
[2019-03-06] MEDS: Metoclopramide 10 MG/2 ML VIAL IVP SCH ×2 (00:12→06:33)
[2019-03-06] MEDS: Ringers Solution, Lactated 1,000 ML IVC SCH ×2 (00:13→10:15)
[2019-03-06] MEDS: Pantoprazole 40 MG VIAL IVP SCH (06:33)
[2019-03-06] MEDS: *HR* Heparin 5,000 UNIT/ML VIAL SQ SCH (06:33)
[2019-03-06] MEDS: Sennosides 8.6 MG TABLET PO SCH (10:12)
[2019-03-06] MEDS: Bisacodyl 10 MG RECTAL SUPPOSITORY RC SCH (10:12)
[2019-03-06 11:47] VITALS: BP 120/83
== END 2019-03-06 13:21 | disposition home or self-care (01) | DRG 263 ==
LOC: 3ANU → SUATTDRO 23:15 → 3ANU 03-04 15:21
PROVIDERS: ADMIT Internal Medicine; ATTEND Internal Medicine

== ENCOUNTER → 2020-12-02 16:22 | Observation (INO) ==
[2020-12-02 14:52] LABS: Bilirubin,Urine Negative (Negative); Blood,Urine Negative (Negative); Clarity,Urine Clear (Clear); Color,Urine Light-Yellow (Yellow); Glucose,Urine (UA) Normal (Normal); Ketones,Urine Negative (Negative); Leukocyte Esterase,Urine Negative (Negative); Nitrite,Urine Negative (Negative); PH,Urine 6.5 pH Units (5.0-8.0); Protein,Urine Negative (Neg-Trace); Specific Gravity,Urine 1.015 (1.010-1.025); Urobilinogen,Urine Normal (Normal)
[2020-12-02 16:05] LABS: Trichomonas DNA Not Detected (Not Detect)
[2020-12-02 16:06] LABS: Candida DNA Not Detected (Not Detect); Gardnerella DNA DETECTED (Not Detect)
== END | disposition home or self-care (01) ==
LOC: 1NENULAB
PROVIDERS: ADMIT Obstetrics & Gynecology; ATTEND Obstetrics & Gynecology

== ENCOUNTER 2021-02-25 06:35 | Inpatient (IN) ==
[2021-02-25] MEDS ORDERED: Naloxone 0.4 MG/ML INJ IVP PRN ×2 (06:45→07:51)
[2021-02-25] MEDS ORDERED: Metoclopramide 10 MG/2 ML VIAL IVP PRN (06:45)
[2021-02-25] MEDS ORDERED: Famotidine 20 MG/2 ML VIAL IVP PRN (06:45)
[2021-02-25] MEDS ORDERED: Penicillin G Potassium 5,000,000 UNIT in 0.9 % Sodium Chloride Mini Bag 100 ML IVPB ONE (06:47)
[2021-02-25] MEDS: Ringers Solution, Lactated 1,000 ML IVC SCH ×3 (07:23→19:28)
[2021-02-25] MEDS: Ondansetron 4 MG/2 ML VIAL IVP PRN ×2 (07:28→22:29)
[2021-02-25] MEDS ORDERED: Ondansetron 4 MG/2 ML VIAL IVP PRN (07:51)
[2021-02-25] MEDS ORDERED: Ropivacaine/PF 0.2% 20 ML VIAL EP ONE (07:51)
[2021-02-25] MEDS ORDERED: *HR* FentaNYL (PF) 100 MCG/2 ML VIAL EP ONE (07:51)
[2021-02-25] MEDS ORDERED: EPHEDrine 50 MG/ML VIAL IVP PRN (07:51)
[2021-02-25 07:56] LABS: Basophils % 0.2 %; Eosinophils # 0.1 K/mcL (0.0-0.6); Hematocrit 35.3 % (35.3-44.9); Hemoglobin 11.4 g/dL (11.5-15.4); Immature Granulocytes % 0.6 % (0-4); Lymphocytes # 2.4 K/mcL (0.6-4.6); Lymphocytes % 16.2 %; Mean Corpuscular HGB Conc 32.3 g/dL (31.6-35.5); Mean Corpuscular Hemoglobin 27.5 pg (28.0-33.3); Mean Corpuscular Volume 85.1 fL (83.0-100.0); Mean Platelet Volume 10.8 fL (9.4-12.4); Monocytes # 1.2 K/mcL (0.0-1.3); Monocytes % 8.1 %; Neutrophils # 10.7 K/mcL (1.6-8.9); Platelet Count 250 K/mcL (140-400); Red Blood Count 4.15 M/mcL (3.82-4.97); Red Cell Distribution Width 13.3 % (11.5-14.5); Segmented Neutrophils % 73.9 %; White Blood Count 14.5 K/mcL (4.3-11.1)
[2021-02-25] MEDS ORDERED: Ropivacaine/PF 0.2% 20 ML VIAL ONE (07:58)
[2021-02-25 08:20] LABS: Influenza A PCR Negative (Negative); Influenza B PCR Negative (Negative); Resp. Syncytial Virus PCR Negative (Negative)
[2021-02-25] MEDS: Epidural Premix (fent/bupiv) 110 ML EP SCH ×3 (08:20→22:16)
[2021-02-25 08:34] LABS: SARS-CoV-2 by PCR (In House) Negative (Negative)
[2021-02-25] MEDS: Penicillin G Potassium 2,500,000 UNIT/105 ML MLS IVPB SCH ×4 (11:32→23:27)
[2021-02-25] MEDS: Oxytocin 20 units/ LR 1000 mL 20 UNIT/1,000 ML BAG IVC SCH (13:41)
[2021-02-25 14:41] LABS: Amphetamine Screen,Urine Negative ng/mL (Cutoff=1000); Barbiturate Screen,Urine Negative ng/mL (Cutoff=200); Benzodiazepines Screen,Urine Negative ng/mL (Cutoff=200); Cannabinoid Screen,Urine Negative ng/mL (Cutoff = 50); Cocaine Screen,Urine Negative ng/mL (Cutoff= 300); Opiate Screen,Urine Negative ng/mL (Cutoff=300); Phencyclidine Screen,Urine Negative ng/mL (Cutoff=25)
[2021-02-25] MEDS ORDERED: Acetaminophen 325 MG TABLET PO ONE (15:11)
[2021-02-25] MEDS ORDERED: Famotidine 20 MG/2 ML VIAL IVP ONE (21:30)
[2021-02-26] MEDS: Penicillin G Potassium 2,500,000 UNIT/105 ML MLS IVPB SCH ×2 (03:47→07:25)
[2021-02-26] MEDS: Epidural Premix (fent/bupiv) 110 ML EP SCH (03:48)
[2021-02-26] MEDS ORDERED: Ringers Solution, Lactated 1,000 ML ONE ×2 (07:20→07:58)
[2021-02-26] MEDS: Oxytocin 20 units/ LR 1000 mL 20 UNIT/1,000 ML BAG IVC SCH (09:03)
[2021-02-26] MEDS ORDERED: Methylergonovine 0.2 MG/ML AMPUL IM ONE ×2 (12:46→13:59)
[2021-02-26] MEDS ORDERED: Lanolin 7 G OINT...G. TP PRN (12:49)
[2021-02-26] MEDS ORDERED: Measles/Mumps/Rubella Vacc 0.5 ML VIAL SQ PRN (12:49)
[2021-02-26] MEDS ORDERED: Ondansetron ODT 4 MG TAB.RAPDIS SL PRN (12:49)
[2021-02-26] MEDS ORDERED: Benzocaine/Menthol 56 GM AEROSOL SPRAY TP PRN (12:49)
[2021-02-26] MEDS ORDERED: Oxytocin 20 units/ LR 1000 mL 20 UNIT/1,000 ML BAG IVC SCH (13:00)
[2021-02-26] MEDS: Ibuprofen 600 MG TABLET PO SCH (15:29)
[2021-02-26] MEDS: Acetaminophen 325 MG TABLET PO SCH (19:54)
[2021-02-27] MEDS: Acetaminophen 325 MG TABLET PO SCH ×3 (03:47→18:32)
[2021-02-27] MEDS: Ibuprofen 600 MG TABLET PO SCH ×3 (03:47→18:32)
[2021-02-27] MEDS: Prenatal Vit/FA 1 EACH TABLET PO SCH (08:24)
[2021-02-27 19:42] VITALS: TEMP 97.9; O2SAT 98
[2021-02-27 23:12] VITALS: BP 123/76; PULSE 92
[2021-02-27] MEDS ORDERED: hydrOXYzine pamoate 25 MG CAPSULE PO PRN (23:26)
[2021-02-28] MEDS: Acetaminophen 325 MG TABLET PO SCH ×2 (03:56→11:06)
[2021-02-28] MEDS: Ibuprofen 600 MG TABLET PO SCH ×2 (03:56→11:06)
[2021-02-28] MEDS: Prenatal Vit/FA 1 EACH TABLET PO SCH (11:07)
== END 2021-02-28 14:00 | disposition home or self-care (01) | DRG 542 ==
LOC: 1NENULAB → 1NENUOBS 02-26 14:55
PROVIDERS: ADMIT Student in an Organized Health Care Education/Training Program; ATTEND Student in an Organized Health Care Education/Training Program